=== PATIENT | male | born 1985 | race Caucasian/White ===

== ENCOUNTER 2017-02-24 15:34 | Emergency (ER) | payer OTHER ==
--- NOTE | 2017-02-24 16:42 | UC ---
Throat Pain/Nasal Terrell HPI - HPI Summary HPI Summary: 31 year old male presents with complains of sinus congestion and cough. - History of Current Complaint Stated Complaint: SINUS COMPLAINT Time Seen by Provider: 02/24/17 16:41 Hx Obtained From: Patient Onset/Duration: Sudden Onset Severity: Moderate Pain Scale Used: 0-10 Numeric - 5 Cough: Nonproductive Associated Signs & Symptoms: Positive: Dysphagia Related History: Seasonal Allergies - Allergies/Home Medications Allergies/Adverse Reactions: Allergies Allergy/AdvReac Type Severity Reaction Status Date / Time Penicillins Allergy Unknown Verified 02/24/17 16:46 Reaction Details Home Medications: Home Medications Atorvastatin* [Lipitor 20 MG*] 02/24/17 [History] Insulin Aspart [Novolog Penfill] 02/24/17 [History] Insulin Glargine [Basaglar Kwikpen] 02/24/17 [History] PMH/Surg Hx/FS Hx/Imm Hx Previously Healthy: Yes - Surgical History Surgical History: None - Family History Known Family History: Positive: Cardiac Disease - Social History Alcohol Use: None Substance Use Type: None Smoking Status (MU): Former Smoker When Did the Patient Quit Smoking/Using Tobacco: 2 years ago Review of Systems Constitutional: Negative Skin: Negative Eyes: Negative ENT: Sore Throat, Nasal Discharge, Sinus Congestion, Sinus Pain/Tenderness Respiratory: Cough Cardiovascular: Negative Gastrointestinal: Negative Genitourinary: Negative Motor: Negative Neurovascular: Negative Musculoskeletal: Negative Neurological: Negative Psychological: Negative All Other Systems Reviewed And Are Negative: Yes Physical Exam Triage Information Reviewed: Yes Vital Signs Reviewed: Yes Eye Exam: Normal ENT: Positive: Nasal congestion, Nasal drainage, Sinus tenderness Dental Exam: Normal Neck exam: Normal Neck: Positive: 1 Respiratory Exam: Normal Cardiovascular Exam: Normal Abdominal Exam: Normal Musculoskeletal Exam: Normal Neurological Exam: Normal Psychological Exam: Normal Skin Exam: Normal Throat Pain/Nasal Course/Dx - Differential Dx/Diagnosis Provider Diagnoses: sinusitis. cough Discharge - Discharge Plan Condition: Stable Disposition: HOME Prescriptions: DOXYcycline CAP(*) [DOXYcycline 100MG CAP(*)] 100 mg PO BID #20 cap Guaifenesin-Codeine [Cheratussin AC] 1 teasp PO BEDTIME PRN #120 ml MDD 5 ml PRN Reason: Cough LoraTADine TAB(NF) [Claritin 10 MG TAB(NF)] 10 mg PO DAILY #30 tab Patient Education Materials: Sinusitis (ED) Referrals: Jose Luis Lujan, BUSINESS INTELLIGENCE DIRECTOR [Primary Care Provider] -
[2017-02-24 16:46] VITALS: BP 134/88
== END 2017-02-24 17:02 | disposition home or self-care (01) ==
LOC: UCCORT 15:34
DX: J32.9 Chronic sinusitis, unspecified (principal); R05 Cough; Z88.0 Allergy status to penicillin; Z87.891 Personal history of nicotine dependence
CPT/HCPCS: 99212; G0463